=== PATIENT | male | born 1975 ===

== ENCOUNTER → 2020-11-28 14:55 | Outpatient (ROUT) | payer SELFPAY ==
[2020-11-28 14:59] LABS: Liquefaction Semen YES (YES)
[2020-11-28 15:00] LABS: Sperm Count 13 x10^6/mL (20-150); Sperm Morphology 49 %ABNORM (0-30)
== END ==
PROVIDERS: Visit Provider Obstetrics & Gynecology
DX: N46.9 Male infertility, unspecified (principal)
CPT/HCPCS: 89320